=== PATIENT | female | born 1970 | race Caucasian/White ===

== ENCOUNTER → 2016-08-19 17:31 | Outpatient (CLI) | payer MEDICAID ==
[2014-03-20 09:56] VITALS: BMI 38.1
[~2016-08-19 17:31] MED LIST: HYDROCODONE-APA1 TAB PO; IBUPROFEN800 MG PO; LISINOPRIL-HCTZ1 TA2 PO; PROZAC40 MG PO; XANAX1 MG PO
== END | disposition home or self-care (01) ==
LOC: D.MAMMO 07-28 11:00
DX: Z12.31 Encounter for screening mammogram for malignant neoplasm of breast (principal)

== ENCOUNTER 2017-02-25 08:02 | Emergency (ER) | payer MEDICAID ==
[2014-03-20 09:56] VITALS: BMI 38.1
== END 2017-02-25 10:20 | disposition home or self-care (01) ==
LOC: D.ER 08:02
DX: S61.412A Laceration without foreign body of left hand, initial encounter (principal); X58.XXXA Exposure to other specified factors, initial encounter; Y93.89 Activity, other specified; Y92.89 Other specified places as the place of occurrence of the external cause

== ENCOUNTER → 2017-03-31 15:33 | Outpatient (CLI) | payer MEDICAID ==
[2014-03-20 09:56] VITALS: BMI 38.1
== END | disposition home or self-care (01) ==
LOC: D.CT 15:33
DX: R74.8 Abnormal levels of other serum enzymes (principal)

== ENCOUNTER → 2017-07-29 09:51 | Outpatient (CLI) | payer MEDICAID ==
[2014-03-20 09:56] VITALS: BMI 38.1
== END | disposition home or self-care (01) ==
LOC: D.MRI 07-27 15:30
DX: M25.562 Pain in left knee (principal)

== ENCOUNTER 2019-08-09 15:07 | Emergency (ER) | payer MEDICAID ==
[~2019-08-09] VITALS: Ht 157.5 cm; Wt 96.4 kg
[2019-08-09 15:26] VITALS: Ht 157.5 cm; Wt 96.4 kg
[2019-08-09] MEDS ORDERED: PROTONIX40 MG PO (15:28)
[2019-08-09] MEDS ORDERED: GLUCOPHAGE500 MG PO (15:28)
[2019-08-09] MEDS ORDERED: TYLENOL W/CODEI1 TAB PO (17:38)
[2019-08-09] MEDS ORDERED: KEFLEX500 MG PO (17:38)
[2019-08-09 19:59] VITALS: BP 113/68
== END 2019-08-09 19:59 | disposition home or self-care (01) ==
LOC: D.ER 15:07
DX: S91.201A Unspecified open wound of right great toe with damage to nail, initial encounter (principal); X58.XXXA Exposure to other specified factors, initial encounter; Y93.9 Activity, unspecified; Y92.9 Unspecified place or not applicable; I10 Essential (primary) hypertension; Z72.0 Tobacco use

== ENCOUNTER 2021-01-30 21:30 | Emergency (ER) | payer BC ==
[~2021-01-30] VITALS: Ht 157.5 cm; Wt 99.1 kg
[~2021-01-30 21:30] MED LIST changes: +GLUCOPHAGE500 MG PO; +KEFLEX500 MG PO; +PROTONIX40 MG PO; +TYLENOL W/CODEI1 TAB PO
[2021-01-30 21:46] VITALS: Ht 157.5 cm; Wt 99.1 kg
[2021-01-30 23:18] LABS: BASOPHILS 0.5 % (0-2); EOSINOPHILS 2.4 % (0-7); HEMATOCRIT 40.3 % (36.0-48.0); HEMOGLOBIN 13.3 g/dL (12-16); LYMPHOCYTES 27.5 % (15-50); MCH 28.1 pg (26.0-34.0); MONOCYTES 5.9 % (2-11); NEUTROPHILS 63.7 % (40-80); PLATELET COUNT 244 10x3/uL (130-400); RBC 4.74 10x6/uL (4.00-5.40); RDW 14.9 % (11.5-14.5); WBC 12.2 10x3/uL (4.8-10.8)
[2021-01-30 23:24] LABS: CALC OSMOLALITY 278 mosm/kg (275-300); CALCIUM 8.5 mg/dL (8.5-10.1); CARBON DIOXIDE 26.9 mmol/L (21.0-32.0); CHLORIDE - SERUM 103 mmol/L (98-107); CREATININE - SERUM 0.8 mg/dL (0.6-1.3); GLUCOSE 95 mg/dL (74-106); POTASSIUM - SERUM 3.2 mmol/L (3.5-5.1); SODIUM 141 mmol/L (136-145); UREA NITROGEN 8 mg/dL (7-18); eGFR NON AFRICAN AMERICAN 80 mL/min (90-120)
[2021-01-30 23:33] LABS: ALBUMIN 3.4 g/dL (3.4-5.0); ALKALINE PHOSPHATASE 66 U/L (30-120); ALT (SGPT) 40 U/L (10-68); AMYLASE - SERUM 22 U/L (25-115); BILIRUBIN - TOTAL 0.52 mg/dL (0.2-1.3); LIPASE 63 U/L (73-393); PROTEIN - SERUM 7.8 g/dL (6.4-8.2)
[2021-01-30 23:35] LABS: TROPONIN-I < 0.017 ng/mL (0.000-0.060)
[2021-01-31 00:38] LABS: BILIRUBIN NEGATIVE (NEGATIVE); KETONE NEGATIVE mg/dL (< 1+); NITRITE NEGATIVE (NEGATIVE); UROBILINOGEN 6 mg/dL (< 2)
[2021-01-31 00:39] LABS: SQUAMOUS EPITHELIAL 1 HPF (0-4); WHITE CELLS - URINE <1 HPF (0-4)
[2021-01-31 02:37] LABS: SARS-CoV-2 ANTIGEN NEGATIVE- SARS-COV-2 (NEGATIVE)
[2021-01-31] MEDS ORDERED: ZOFRAN ODT4 MG/UDTAB PO (07:50)
[2021-01-31] MEDS ORDERED: CIPRO500 MG PO (07:50)
[2021-01-31 08:03] VITALS: BP 138/70
== END 2021-01-31 08:04 | disposition home or self-care (01) ==
LOC: D.ER 21:30
PROVIDERS: Emergency Medicine
DX: R50.9 Fever, unspecified (principal); R11.10 Vomiting, unspecified; E87.6 Hypokalemia; I10 Essential (primary) hypertension; K21.9 Gastro-esophageal reflux disease without esophagitis